=== PATIENT | male | born 1985 | race Two or more races ===

== ENCOUNTER 2017-03-05 19:39 | Emergency (ER) | payer OTHER ==
[~2017-03-05] VITALS: Ht 190.5 cm; Wt 78.0 kg
[2017-03-05 19:45] VITALS: BP 136/77
== END 2017-03-05 23:08 | disposition home or self-care (01) ==
LOC: ER 19:40
DX: M25.561 Pain in right knee (principal); Z91.09 Other allergy status, other than to drugs and biological substances
CPT/HCPCS: 73564-TC; A4606; Z7610